=== PATIENT | male | born 1925 | race Caucasian/White ===

== ENCOUNTER 2017-03-15 10:07 | Emergency (ER) | payer MEDICARE, BC ==
--- NOTE | 2017-03-15 10:44 | EDM.PDOC ---
ED HPI HEAD INJURY - General Chief Complaint: Head Injury Stated Complaint: FALL KNEE INJURY Time Seen by Provider: 03/15/17 10:43 Source of Information: Reports: Patient, Family (. ) History Limitations: Reports: No limitations - History of Present Illness INITIAL COMMENTS - FREE TEXT/NARRATIVE: Elderly male presents to the ED in the accompaniment of his . She reports they were walking into [facility] to sing as part of a choir group this morning when he got tripped up and fell face first into a tiled concrete floor. There was no loss of consciousness. He injured his left knee and has an obvious hematoma developing on is left frontal forehead. He denies headache nausea vomiting. Accident occurred within the last hour. He denies any neck pain or chest wall pain. He skinned up the knuckles of his left hand. No evidence of fracture however. He is walking. Unclear when his last tetanus toxoid would've been updated. Of note he is on Coumadin because of chronic itch fibrillation. Has heart failure and pacemaker. Patient has had several strokes TIAs and heart attack. reported that he seemed to be a little more off balance than normal this morning when she got him ready for the day. He usually gets around with the aid of a cane. Symptom Onset Date: 03/15/17 Symptom Onset Time: 10:30 Timing/Duration: Reports: Minutes:, Sudden onset Location: Reports: frontal (Left frontal), other (Dorsal hand left side left knee.) Quality: Reports: ache, burning Severity: moderate Place of Occurrence: other ([facility] where he was going to go and saneness part of a choir group) Improves with: none Worsens with: none Context: Reports: fall Associated Symptoms: Reports: weakness. 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) - Related Data Allergies/ADRs: Allergies Allergy/AdvReac Type Severity Reaction Status Date / Time No Known Allergies Allergy Verified 03/15/17 10:17 Home Meds: Home Meds atorvaSTATin [Lipitor] 20 mg PO DAILY 03/30/15 [History] Aspirin [Halfprin] 81 mg PO DAILY #30 tab.ec 09/06/15 [Rx] Enalapril [Vasotec] 5 mg PO DAILY #30 tablet 09/06/15 [Rx] Warfarin [Coumadin] 1 tab PO DAILY 03/15/17 [History] Past Medical History HEENT History: Reports: Cataract Other HEENT History: Glasses Cardiovascular History: Reports: Heart Failure, High cholesterol, Hypertension, NE, Pacemaker, Syncope Respiratory History: Reports: None Genitourinary History: Reports: Prostate disorder Other Genitourinary History: prostate surgery in 2008 Musculoskeletal History: Reports: Back pain, chronic Neurological History: Reports: CVA Other Neuro History: CVA x2 Hematologic History: Reports: Blood transfusion(s) Other Hematologic History: On Coumadin - Past Surgical History HEENT Surgical History: Reports: Cataract surgery Other Musculoskeletal Surgeries/Procedures:: back surgery Social & Family History - Family History Family Medical History: Noncontributory - Tobacco Use Smoking Status *Q: Former Smoker Years of Tobacco use: 20 Used Tobacco, but Quit: No Month Tobacco Last Used: 1959 Second Hand Smoke Exposure: No - Alcohol Use Days Per Week of Alcohol Use: 0 - Recreational Drug Use Recreational Drug Use: No - Living Situation & Occupation Living situation: Reports: , with spouse Occupation: retired [employer] GENER[employer] - Review of Systems Review Of Systems: See Below Constitutional: Reports: weakness, fatigue. Denies: fever, chills, malaise, weight loss HEENT: Reports: Glasses, Other (Vision isn't the best. His eyeglasses today when he fell.) Respiratory: Reports: Shortness of Breath. Denies: Wheezing (On exertion), Pleuritic Chest Pain, Cough, Sputum Cardiovascular: Reports: Blood pressure problem (Well controlled with medication.), Dyspnea on exertion (Chronic), Lightheadedness (Sometimes when she stands up too quick) Endocrine: Reports: fatigue GI/Abdominal: Reports: Constipation. Denies: Abdominal pain : Reports: frequency, other (Nocturia x3) Musculoskeletal: Reports: back pain, joint pain (Knees and hips shoulders at times.) Skin: Reports: no symptoms Neurological: Reports: Confusion (Very rarely mildly confused.) Psychiatric: Reports: No symptoms Hematologic/Lymphatic: Reports: no symptoms Immunologic: Reports: no symptoms ED EXAM, HEAD INJURY - Physical Exam Exam: See Below Exam Limited By: No limitations General Appearance: alert, WD/WN, no apparent distress, other (Answers all questions quite appropriately. He is a large 3.5 cm hematoma developing left frontal forehead.) Head: normocephalic, scalp tenderness (Large frontal hematoma of forehead.) Ears: normal TMs Nose: other (Has a couple of weeks on his nose but the nose is not deformed and has not been bleeding.) Throat/Mouth: Normal inspection, Normal lips, Normal oropharynx, Other (Did not fractures dentures. Left upper lip is mildly swollen but there is no laceration to the inner mucosa.) Neck: non-tender, full range of motion, normal alignment, normal inspection Respiratory: no respiratory distress, lungs clear, normal breath sounds, no accessory muscle use, other (No pain on palpation of his ribs or sternum.) Cardiovascular: normal peripheral pulses, regular rate, rhythm, no murmur GI/Abdominal Exam (Abbreviated): normal bowel sounds, soft, non tender, no organomegaly Back Exam: normal inspection, full range of motion. No: CVA tenderness (L), CVA tenderness (R) Extremities: other (Has some mild abrasions over the knuckles or the MCP joints of both hands were little worse on the left is 3 lesions. There is nothing to suture. He has evidence of rheumatoid arthritis with marked swelling of the MCP joints of both hands. The right knee is normal. The left reveals a 4 cm x 2 cm superficial skin tear over the patella. The patella itself is quite swollen. He states it was previously deformed from previous injuries. X-ray will be done to make sure there is no bony fracture of the patella. It's unlikely since he's been able to walk on it.) Neurologic: no motor/sensory deficits, alert, normal mood/affect, oriented x 3 Skin: Normal color, Warm/dry - [place] Coma Score Best Eye Response (Buck[place]): (4) open spontaneously Best Verbal Response (Buck[place]): (5) oriented Best Motor Response (Johana): (6) obeys commands Johana Total: 15 Course - Vital Signs Last Recorded V/S: Last Vital Signs Temp 36.4 C 03/15/17 10:18 Pulse 80 03/15/17 10:18 Resp 18 03/15/17 10:18 BP 129/72 03/15/17 10:18 Pulse Ox 96 03/15/17 10:18 - Orders/Labs/Meds Orders: Active Orders 24 hr Category Date Time Status Vaccines to be Administered [RC] PER UNIT ROUTINE Care 03/15/17 11:06 Active Labs: Laboratory Tests 03/15/17 03/15/17 03/15/17 Range/Units 10:46 10:46 10:46 WBC 7.62 (4.23-9.07) K/mm3 RBC 4.36 L (4.63-6.08) M/mm3 Hgb 13.7 (13.7-17.5) gm/L Hct 41.1 (40.1-51.0) % MCV 94.3 H (79.0-92.2) fl MCH 31.4 (25.7-32.2) pg MCHC 33.3 (32.2-35.5) g/dl RDW Std Deviation 45.9 H (35.1-43.9) fL Plt Count 256 (163-337) K/mm3 MPV 9.6 (9.4-12.3) fl Neutrophils % (Manual) 69 H (40-60) % Band Neutrophils % 0 (0-10) % Lymphocytes % (Manual) 23 (20-40) % Atypical Lymphs % 0 % Monocytes % (Manual) 3 (2-10) % Eosinophils % (Manual) 5 (0.8-7.0) % Basophils % (Manual) 0 L (0.2-1.2) Platelet Estimate Adequate RBC Morph Comment Normal PT 23.4 H (8.0-13.0) SECONDS INR 2.05 Sodium 138 (136-145) mEq/L Potassium 4.8 (3.5-5.1) mEq/L Chloride 103 (98-107) mEq/L Carbon Dioxide 29 (21-32) mEq/L Anion Gap 10.8 (5-15) BUN 30 H (7-18) mg/dL Creatinine 1.3 (0.7-1.3) mg/dL Est Cr Clr Drug Dosing 37.81 mL/min Estimated GFR (MDRD) 52 (>60) mL/min BUN/Creatinine Ratio 23.1 H (14-18) Glucose 106 (83-115) mg/dL Calcium 9.5 (8.5-10.1) mg/dL Total Bilirubin 0.9 (0.2-1.0) mg/dL AST 32 (15-37) U/L ALT 33 (16-63) U/L Alkaline Phosphatase 147 H (46-116) U/L Total Protein 7.7 (6.4-8.2) g/dl Albumin 3.7 (3.4-5.0) g/dl Globulin 4.0 gm/dL Albumin/Globulin Ratio 0.9 L (1-2) Meds: Medications Discontinued Medications Generic Name Dose Route Start Last Admin Trade Name Rita PRN Reason Stop Dose Admin Diphtheria/Tetanus/Acell Pertussis 0.5 ml 03/15/17 11:06 03/15/17 11:45 Boostrix IM 03/15/17 11:07 0.5 ml .ONCE ONE Administration - Radiology Interpretation Free Text/Narrative:: 89-year-old male who got tripped up and fell face first into tiled concrete floor this morning while walking to [facility]. He is not a patient there but he goes there to seeing with his . Usually walks with aid of a cane. Right side was a little more often turned off balance this morning when she got him ready for the day. He has some pre-existing weakness and TIAs strokes. Exam reveals a 3.5 cm hematoma left frontal forehead. Skin that his left knee with the 4 cm x 2 cm abrasion that is superficial and will not require sutures. However the left patella is quite swollen x-rays will be done to make shows no fracture. He's on Coumadin and therefore CT of his head will be done as well. Tdap will be updated - Re-Assessments/Exams Free Text/Narrative Re-Assessment/Exam: 03/15/17 12:00: CT of the head is within normal limits. He has age-appropriate degenerative changes with small vessel demyelination in the basal ganglia bilaterally. The lateral ventricles are markedly dilated. There is no lacunar infarct in the left occipital lobe. There are no skull fractures frontal scalp hematoma appreciated in the left side. X-ray of the left knee shows extensive past arthritic changes likely from an old fracture of the patella. There is no new fracture identified. His wounds were cleansed and then antibiotic topically was placed with a bandage. will continue wound management at home. His tenderness diphtheria and pertussis toxoids were updated today. Departure - Departure Time of Disposition: 12:00 Disposition: Home, Self-Care 01 Condition: fair Clinical Impression: Scalp hematoma Qualifiers: Encounter type: initial encounter Qualified Code(s): S00.03XA - Contusion of scalp, initial encounter Fall Qualifiers: Encounter type: initial encounter Qualified Code(s): W19.XXXA - Unspecified fall, initial encounter Abrasion, left knee, initial encounter Qualifiers: Encounter type: initial encounter Qualified Code(s): S80.212A - Abrasion, left knee, initial encounter Instructions: Facial or Scalp Contusion, [id number], Abrasion, [id number] Referrals: Efrain Coats MD [Primary Care Provider] - Forms: ED Department Discharge Additional Instructions: Evaluation in the emergency room this morning after getting tripped up and falling/10 on hard tiled concrete floor. Close head injury has occurred with a soft tissue swelling or hematoma the left forehead. CT did not reveal any skull fractures or intracranial bleeding. There is evidence of an old stroke in the left occipital lobe the brain and a fair amount of age-appropriate degenerative changes. X-rays of the left knee reveal advanced osteoarthritis of the joint itself but also of the patellofemoral joint with previous injury appreciated. No new injuries were identified. The abrasion the left knee was cleansed and an antibiotic dressing applied. This is to be continued daily with daily washing of the area with soap and water then apply topical antibiotic ointment and covered keep clean or prevent from rubbing on clothing until healed. Her tetanus diphtheria and pertussis vaccine was updated today and is good for the next 10 years. 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 No other abdomen pelvis were appreciated in your lab tests. - My Orders Last 24 Hours: My Active Orders 03/15/17 11:06 Vaccines to be Administered [RC] PER UNIT ROUTINE - Assessment/Plan Last 24 Hours: My Active Orders 03/15/17 11:06 Vaccines to be Administered [RC] PER UNIT ROUTINE
[2017-03-15] MEDS ORDERED: Diphtheria,Pertussis(Acell),Tetanus Vaccine 0.5 ML SDV inactive IM ONE (11:06)
--- NOTE | 2017-03-15 11:26 | CT ---
Head CT Technique: Multiple axial sections through the brain were obtained. Intravenous contrast was not utilized. Comparison: Previous MRI brain of 09/03/15 is available. Findings: Ventricles along with basal cisterns and sulci over the convexities are moderately prominent. Small soft tissue hematoma is seen within the left frontal scalp. Diminished density is noted within the periventricular white matter compatible with small vessel ischemic demyelination change. Old infarct is noted within the left occipital lobe. No evidence of intracranial hemorrhage. No midline shift or mass effect is seen. Slight mucosal thickening is seen within the ethmoid sinuses. No acute calvarial abnormality is seen. Impression: 1. Small soft tissue hematoma within the left frontal scalp. 2. Senescent change as noted above. No acute calvarial abnormality is seen. Diagnostic code #2
--- NOTE | 2017-03-15 12:15 | CR ---
Left knee: AP, lateral and sunrise patellar views of the left knee were obtained. Comparison: No previous knee exam. Chondrocalcinosis noted within the menisci. Mild degenerative sclerosis is seen within the medial joint. Medial tibial osteophyte is seen. Bony densities are noted off the lateral patellofemoral joint which is likely degenerative in etiology. Osteophytes also seen within the patellofemoral joint. Small joint effusion is seen. Mild soft tissue swelling noted anteriorly. No acute fracture is seen. Vascular calcification is noted. Impression: 1. Soft tissue swelling anteriorly. 2. Degenerative change and other incidental findings. No acute bony abnormality is identified. Diagnostic code #2
[2017-03-15 13:17] VITALS: BP 120/78
== END 2017-03-15 12:20 | disposition home or self-care (01) ==
LOC: JD.ED 10:07
DX: S00.03XA Contusion of scalp, initial encounter (principal); S80.212A Abrasion, left knee, initial encounter; W19.XXXA Unspecified fall, initial encounter; Z79.01 Long term (current) use of anticoagulants; Z79.82 Long term (current) use of aspirin; Z79.899 Other long term (current) drug therapy; I11.0 Hypertensive heart disease with heart failure; I50.9 Heart failure, unspecified; E78.00 Pure hypercholesterolemia, unspecified; Z95.0 Presence of cardiac pacemaker; Z86.73 Personal history of transient ischemic attack (TIA), and cerebral infarction without residual deficits; G89.29 Other chronic pain; M54.9 Dorsalgia, unspecified; N42.9 Disorder of prostate, unspecified; Z87.891 Personal history of nicotine dependence; Z23 Encounter for immunization
CPT/HCPCS: 36415; 70450; 70450-26; 73562-26-LT; 73562-LT; 80053; 85025; 85610; 90471; 90715; 99283; 99284-25